=== PATIENT | female | born 1980 | race African-American/Black ===

== ENCOUNTER 2017-07-18 14:28 | Emergency (ER) | payer MEDICAID, OTHER ==
[2017-07-18 14:38] VITALS: BP 142/85
--- NOTE | 2017-07-18 15:42 | ER Document Report ---
ED General - General Chief Complaint: Back Pain Stated Complaint: RASH Time Seen by Provider: 07/18/17 15:19 Notes: 36 yo female presents to ED today with multiple complaints. pt c/o pruritic rash x several weeks and persistant left back pain/ muscle spasms for several weeks. pt has been seen by [facility] ED and her PCM for both. She was treated with naprosyn and robaxin which she says has not helped the pain. pt denies any fever, urinary symptoms, radiculopathy or paresthesias. 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 TRAVEL OUTSIDE OF THE [place] IN LAST 30 DAYS: No - HPI Onset/Duration: Persistent Quality of pain: Achy Associated symptoms: None Exacerbated by: Movement Relieved by: Denies Similar symptoms previously: Yes Recently seen / treated by doctor: Yes - Related Data Allergies/Adverse Reactions: No Known Allergies Allergy (Verified 03/18/16 15:38) Past Medical History - General Information source: Patient - Social History Smoking Status: Never Smoker Frequency of alcohol use: None Drug Abuse: None Lives with: Family Family History: Reviewed & Not Pertinent - Past Medical History Cardiac Medical History: Reports: Hx Hypertension Endocrine Medical History: Reports: Hx Diabetes Mellitus Type 2 Renal/ Medical History: Denies: Hx Peritoneal Dialysis Musculoskeltal Medical History: Reports Hx Musculoskeletal Deformity, Reports Hx Musculoskeletal Trauma Past Surgical History: Reports: Hx Section - Immunizations Hx Diphtheria, Pertussis, Tetanus Vaccination: Yes Review of Systems - Review of Systems Constitutional: No symptoms reported EENT: No symptoms reported Cardiovascular: No symptoms reported Respiratory: No symptoms reported Gastrointestinal: No symptoms reported Genitourinary: No symptoms reported Female Genitourinary: No symptoms reported Musculoskeletal: Back pain Skin: See HPI Hematologic/Lymphatic: No symptoms reported Neurological/Psychological: No symptoms reported Physical Exam - Vital signs Vitals: Temp Pulse Resp BP Pulse Ox 99.4 F 84 16 142/85 H 98 07/18/17 14:34 07/18/17 14:34 07/18/17 14:34 07/18/17 14:34 07/18/17 14:34 Interpretation: Normal - General General appearance: Appears well, Alert - HEENT Head: Normocephalic, Atraumatic Eyes: Normal Pupils: PERRL - Respiratory Respiratory status: No respiratory distress Chest status: Nontender Breath sounds: Normal Chest palpation: Normal - Cardiovascular Rhythm: Regular Heart sounds: Normal auscultation Murmur: No - Abdominal Inspection: Normal Distension: No distension Bowel sounds: Normal Tenderness: Nontender Organomegaly: No organomegaly - Back Back: Tender - left latissimus muscle tenderness. no vertebral tenderness.. No : CVA tenderness, Vertebra tenderness - Extremities General upper extremity: Normal inspection, Nontender, Normal color, Normal ROM , Normal temperature General lower extremity: Normal inspection, Nontender, Normal color, Normal ROM , Normal temperature, Normal weight bearing. No: Emmanuel's sign - Neurological Neuro grossly intact: Yes Cognition: Normal Orientation: AAOx4 Klever Coma Scale Eye Opening: Spontaneous Brewster Coma Scale Verbal: Oriented Klever Coma Scale Motor: Obeys Commands Brewster Coma Scale Total: 15 Speech: Normal Motor strength normal: LUE, RUE, LLE, RLE Sensory: Normal - Psychological Associated symptoms: Normal affect, Normal mood - Skin Skin Temperature: Warm Skin Moisture: Dry Skin Color: Normal Skin irregularity: Rash - scattered papular deroofed lesions to bilat upper and lower extremities. no s/s secondary infection Location of irregularity: Extremities Course - Re-evaluation Re-evalutation: 07/18/17 15:42 pt's back pain is c/w musculoskelatal pain. no neuro deficits or red flags identified, no imaging indicated. pt's rash has no purpuric or infectious characteristics. will treat with topical steroid. I will treat back pain with muscle relaxant and anti inflammatory medication and have patient follow up with primary care for further evaluation. 07/18/17 15:46 pt was offered a Toradol injection, but she declines - Vital Signs Vital signs: Temp Pulse Resp BP Pulse Ox 99.4 F 84 16 142/85 H 98 07/18/17 14:34 07/18/17 14:34 07/18/17 14:34 07/18/17 14:34 07/18/17 14:34 Discharge - Discharge Clinical Impression: Rash and nonspecific skin eruption Left low back pain Qualifiers: Chronicity: acute Sciatica presence: without sciatica Qualified Code(s): M54.5 - Low back pain Condition: Stable Instructions: Ice Packs ([facility]), Warm Packs ([facility]), Low Back Pain ([facility]), Muscle Strain ([facility]), Steroid Medication Additional Instructions: please take medication as prescribed alternate ice/heat to painful area on back wear back brace as instructed by your primary care consider chiropractic evaluation for back pain Prescriptions: Cyclobenzaprine HCl [Flexeril 10 Mg Tablet] 10 mg PO Q6H PRN #15 tablet PRN Reason: Triamcinolone Acetonide [Aristocort 0.5% Cream 15 gm] 1 applic TP BID #30 g
== END 2017-07-18 16:50 | disposition home or self-care (01) ==
LOC: ER 14:28
DX: R21 Rash and other nonspecific skin eruption (principal); M54.5 Low back pain; M54.9 Dorsalgia, unspecified
CPT/HCPCS: 99282